=== PATIENT | male | born 1990 | race Caucasian/White ===

== ENCOUNTER 2017-01-18 15:04 | Emergency (ER) | payer OTHER ==
[2017-01-18 15:17] VITALS: TEMP 97.7
--- NOTE | 2017-01-18 15:54 | UCPHY ---
H & P Time Seen by Provider: 01/18/17 15:17 Patient Type: Established HPI/ROS: Chief complaint: sore throat continues HPI: this is an otherwise healthy 26-year-old male without known exposure. He complains as of 4 days of sore throat. He was seen at a local here by [facility]gent [facility] some 2 days ago and was found to have strep negative. In the interim he has not been notified to be strep positive. He still ill. He has a moderate sensation of fever though did not checked. He also notes that he has difficulty swallowing and when he looked in his throat was red without exudate so he came in for another evaluation. By far and away the biggest concern for him is that he has run out of 6 days at work. Furthermore, this past October he had a similar illness with similar sore throat that simply lasted for 3 weeks. He can' t afford to be ill that long. With this illness there is no sinus pain or sinus discharge or earache. Does have a cough but on occasion but he notes that he believes is more for his throat rather than his lungs. Otherwise healthy. No job exposure. ROS: Constitutional - subjective fevers Eyes - no discharge, or injection ENT - no earache, change in hearing. He does note some anterior adenopathy Respiratory - No Shortness of breath, phlegm, wheezing or pleuritic chest pain. The cough is dry Musculoskeletal - mild joint or muscle pain. Integument - no rashes. Neurological - mild headache. Immunological - no swelling or lymphadenopathy 10 point ROS otherwise negative Smoking Status: Never smoked Physical Exam: Gen: Well developed, well nourished. Nontoxic. HEENT: Normocephalic. Ears: TMs are clear. Hearing normal. Eyes: PERRL. No conjunctival injection or pallor. no jaundice. Nose: No nasal discharge. Sinuses are nontender. Throat: Membranes are moist. Oropharynx moderate erythema with notable exudate present on both tonsils however there is no petechiae. There is mild anterior adenopathy but no posterior adenopathy. Lymphatics: Mild anterior abdomen the up the but no posterior or axillary adenopathy Lungs: Good air entry into both lungs. No rales rhonchi or wheezes. No air hunger. No respiratory distress. Skin: Good color, without pallor. There is no diaphoresis. Skin is warm and dry , without diaphoresis. Intact without rashes Constitutional: Initial Vital Signs Temperature (C) 36.5 C 01/18/17 15:15 Heart Rate 93 01/18/17 15:15 Respiratory Rate 18 01/18/17 15:15 Blood Pressure 119/79 01/18/17 15:15 O2 Sat (%) 96 01/18/17 15:15 O2 Delivery Mode Room Air Allergies/Adverse Reactions: No Known Allergies Allergy (Unverified 01/18/17 15:15) Home Medications: Medication Instructions Recorded Azithromycin [Zithromax] 250 mg PO DAILY #6 tab 01/18/17 Medical Decision Making ED Course/Re-evaluation: Here his repeat strep was negative. We had a discussion regarding perhaps checking for mono. This remains somewhat low likelihood has he has no posterior adenopathy. He really would like to not be tested for that. I have explained to him that he needs to avoid any contact sports for 6 weeks as we will not really be certain about this diagnosis. He really wants an antibiotic. He was polite at all times but he states he simply cannot afford to be out any longer. He needs to have every attempt to get back to be better. He certainly meets distinct elements of the center criteria with fever his age and his appearance of his throat however he does not have that much adenopathy. All things being stated as above he still has a chance this could be strep. Thus he would like to be treated. We did have a long discussion regarding prospects of spontaneous recovery in strep and the very low likelihood of rheumatic heart disease or rheumatic fever. Thereby Zithromax would meet his needs and also cover any element of pneumonia that I am unable to hear at this time. Differential Diagnosis: Diagnostic considerations include, but are not limited to, the following: URI, sinusitis, pharyngitis, otitis media, pneumonia, allergy, influenza. - Data Points Laboratory Results: 01/18/17 01/18/17 Unknown 15:10 Group A Strep Screen NEGATIVE (NEGATIVE) Group A Strep DNA Pending Departure - Departure Disposition: Home, Routine, Self-Care Clinical Impression: Pharyngitis Qualifiers: Pharyngitis/tonsillitis etiology: unspecified etiology Qualified Code(s): J02.9 - Acute pharyngitis, unspecified Condition: Good Instructions: Pharyngitis (ED) Additional Instructions: Take ibuprofen or Tylenol for the fever as needed Referrals: Rosita Espinoza MD [Medical Doctor] - As per Instructions Prescriptions: Azithromycin [Zithromax] 250 mg PO DAILY #6 tab - PQRS PQRS Measurement: NA
[2017-01-18 16:26] VITALS: BP 104/78; PULSE 92; RESP 16; O2SAT 98
== END 2017-01-18 16:15 | disposition home or self-care (01) ==
LOC: CED 15:04
DX: J02.9 Acute pharyngitis, unspecified (principal)
CPT/HCPCS: 87880-PO; 99214-PO; G0463-PO